=== PATIENT | female | born 1940 | race Caucasian/White ===

== ENCOUNTER → 2019-07-14 22:05 | Outpatient (CLI) | payer MEDICARE, OTHER | END | disposition home or self-care (01) | LOC: D.MAMMO 05-01 13:15 | PROVIDERS: ATTEND Family Medicine | DX: Z12.31 Encounter for screening mammogram for malignant neoplasm of breast (principal) ==

== ENCOUNTER 2019-08-21 13:00 | Outpatient (CLI) | payer MEDICARE, OTHER | END 2019-08-22 14:00 | disposition home or self-care (01) | LOC: D.MAMMO 13:00 | PROVIDERS: ATTEND Family Medicine | DX: R92.8 Other abnormal and inconclusive findings on diagnostic imaging of breast (principal) ==

== ENCOUNTER 2020-07-25 11:04 | Observation (INO) | payer MEDICARE, OTHER ==
[~2020-07-25] VITALS: Ht 157.5 cm; Wt 56.4 kg
--- NOTE | ~2020-07-25 | HEMODYNAMI ---
PATIENT:ALYSSA LOVETT MEDICAL RECORD: [id number] : 44 LOCATION:[address] [id number] ADMISSION DATE: 07/25/20 Generatedon:115:01 Patient name: ALYSSA LOVETT Patient #: [id number] SSN: : 1940 Date of study: 07/26/2020 Page: Of Hemodynamic Procedure Report Patient Data Patient Demographics Procedure consent was obtained First Name: ALYSSA Gender: Female Last Name: BONY : 1940 Middle Initial: R Age: 79 year(s) Patient #: [id number] Race: Unknown Additional ID: [id number] Contact details Address: [address] [place], [place] [address] State: [place] City: [place] Zip code: [address] Past Medical History Allergies: No known allergies Admission Admission Data Admission Date: 07/25/2020 Admission Time: 12:43 Room #: [facility] Lab Results Lab Result Date: 07/26/2020 Lab Result Time: 0:00 Biochemistry Name Units Result Min Max BUN mg/dl 14 --(--*-)-- 7 18 Creatinine mg/dl 0.6 --(*---)-- 0.6 1.3 eGFR ml/min 90 --(*---)-- 90 120 NONAFRICAN CBC Name Units Result Min Max Hematocrit % 38.5 *-(----)-- 42 54 Hemoglobin g/dl 12.8 -*(----)-- 13.5 17.5 Procedure Procedure Types Cath Procedure Diagnostic Procedure [facility] w/Coronaries Sedation Charges Moderate Sedation 10-24 minutes Procedure Description Procedure Date Procedure Date: 07/26/2020 Procedure Start Time: 14:43 Procedure End Time: 14:58 Procedure Staff Name Function Miki Corona MD Performing Physician Ledy Banks RT Monitor Venecia Don RN Nurse Yaneth Nicholas RT Scrub Indication Unstable angina Procedure Data Cath Procedure Fluoroscopy Diagnostic fluoroscopy Total fluoroscopy Time: 5.9 time: 5.9 min min Diagnostic fluoroscopy Total fluoroscopy dose: 409 dose: 409 mGy mGy Contrast Material Contrast Material Type Amount (ml) Isovue 300 70 Entry Location Entry Primary Successful Side Size Upsize Upsize Entry Closure Caro ccessful Closure Location (Fr) 1 (Fr) 2 (Fr) Remarks Device Remarks Radial Right 6 Fr Mechanical artery Short Compression Estimated blood loss: 5 ml Diagnostic catheters Device Type Used For End Catheter Placement DIAGNOSTIC [place] 110cm 5 Procedure Fr catheter ([id number]) DIAGNOSTIC [place] 110cm Procedure 5Fr catheter (938094) DIAGNOSTIC JL 3.5 5Fr Procedure catheter (100830B) DIAGNOSTIC AR MOD 5Fr Procedure Catheter (498227C) Procedure Complications No complications Procedure Medications Medication Administration Route Dosage Oxygen etCO2 Nasal cannula 2 l/min Lidocaine 2% added to field 20 Heparin Flush Bag added to field 2 bags (1000units/500ml NS) 0.9% NaCl I.V. 100 ml/hr Zofran I.V. 4 mg Radial Cocktail added to field 1 syringe (Verapamil 2mg/Nitro 400mcg/Heparin 1500units) Radial Cocktail I.A. 1 syringe (Verapamil 2mg/Nitro 400mcg/Heparin 1500units) Versed I.V. 1 mg Fentanyl I.V. 50 mcg Versed I.V. 1 mg Fentanyl I.V. 50 mcg Versed I.V. 1 mg Hemodynamics Rest HGB: 12.8 (g/dl) Heart Rate: 70 (bpm) Pressure Samples Time Site Value (mmHg) Purpose Heart Use Rate(bpm) 14:45 LV 110/-7,5 Snapshot 69 Gradients Valve Time Site Site Mean SEP/DFP Peak To Heart Use 1 2 (mmHg) (sec/min) Peak Rate (mmHg) (bpm) Aortic 14:46 LV AO 30 Snapshots Pre Cath Intra NCS Post Cath Vital Signs Time Heart Resp SPO2 etCO2 NIBP (mmHg) Rhythm Pain Sedation Rate (ipm) (%) (mmHg) Status Level (bpm) 14:26:33 71 23 98 1.5 131/61(107) NSR 0 (11) 10(A) , No pain 14:30:49 65 16 100 34.5 126/53(99) NSR 0 (11) 10(A) , No pain 14:35:03 65 13 99 44.4 130/56(91) NSR 0 (11) 10(A) , No pain 14:39:19 66 14 99 44.4 129/53(87) NSR 0 (11) 10(A) , No pain 14:43:35 67 13 99 47.4 118/54(82) NSR 0 (11) 9(A) , No pain 14:47:45 72 14 98 27.8 99/51(80) NSR 0 (11) 9(A) , No pain 14:51:51 74 12 97 35.3 106/52(77) NSR 0 (11) 9(A) , No pain 14:56:01 77 13 98 45.8 117/50(72) NSR 0 (11) 10(A) , No pain Medications Time Medication Route Dose Verified Delivered Reason Notes Effectiveness by by 14:17:07 Oxygen etCO2 2 l/min Miki Buffie used for Nasal Cj Don RN procedure cannula 14:17:13 Lidocaine 2% added 20ml Miki Miki for local to vial Cj Corona MD anesthetic field 14:17:19 Heparin Flush added 2 bags Miki Miki used for Bag to Cj Corona MD procedure (1000units/500ml field NS) 14:17:29 0.9% NaCl I.V. 100 Miki Buffie Per ml/hr Cj Don RN physician 14:25:25 Zofran I.V. 4 mg Miki Buffie for nausea Cj Don RN 14:35:00 Radial Cocktail added 1 Miki Miki for (Verapamil to syringe Cj Corona MD vasodilation 2mg/Nitro field 400mcg/Heparin 1500units) 14:43:03 Versed I.V. 1 mg Miki Buffie for sedation Cj Don RN 14:43:08 Fentanyl I.V. 50 mcg Miki Buffie for sedation Cj Don RN 14:44:56 Radial Cocktail I.A. 1 Miki Miki for (Verapamil syringe Cj Corona MD vasodilation 2mg/Nitro 400mcg/Heparin 1500units) 14:46:10 Versed I.V. 1 mg Miki Buffie for sedation Cj Don RN 14:46:14 Fentanyl I.V. 50 mcg Miki Buffie for sedation Cj Don RN 14:50:17 Versed I.V. 1 mg Miki Cuadra for sedation Cj Don RN Procedure Log Time Note 14:09:50 Ledy Banks RT(R) sent for patient. Start room use. 14:09:52 Time tracking: Regular hours (M-F 7:00 - 5:00) 14:09:57 Plan of Care:Hemodynamics will remain stable., Cardiac rhythm will remain stable., Comfort level will be maintained., Respiratory function will remain adequate., Patient/ family verbilizes understanding of procedure., Procedure tolerated without complication., Recovers from procedure without complications.. 14:17:07 Oxygen 2 l/min etCO2 Nasal cannula was administered by Venecia Don RN; used for procedure; Verbal order read back and verified. 14:17:13 Lidocaine 2% 20ml vial added to field was administered by Miki Corona MD; for local anesthetic; Verbal order read back and verified. 14:17:19 Heparin Flush Bag (1000units/500ml NS) 2 bags added to field was administered by Miki Corona MD; used for procedure; Verbal order read back and verified. 14:17:29 0.9% NaCl 100 ml/hr I.V. was administered by Venecia Don RN; Per physician; Verbal order read back and verified. 14:22:23 Patient received from PCU to CCL 2 Alert and oriented. Tansferred to table in Supine position. 14:22:24 Warm blankets applied, and marci hugger turned on for patient comfort. 14:22:26 Signed procedure consent form obtained from patient. 14::27 Correct patient and procedure confirmed by team. 14:22:27 ECG and BP/O2 sat monitors applied to patient. 14:22:29 Full Disclosure recording started 14:25:20 Vital chart was started 14:25:25 Zofran 4 mg I.V. was administered by Venecia Don RN; for nausea; Verbal order read back and verified. 14:25:27 Baseline sample Acquired. 14:25:31 Rhythm: sinus rhythm 14:25:37 H&P Date Dictated: 07/26/2020 ER History on chart.. 14:25:37 Pre-procedure instructions explained to patient. 14:25:38 Pre-op teaching completed and patient verbalized understanding. 14:25:39 Family unavailable. 14:25:40 Patient NPO since Midnight. 14:26:36 Patient allergic to No known allergies 14:26:40 Is patient on blood thinner?No 14:26:48 Patient diabetic? No. 14:26:55 Previous problem with sedation/anesthesia? Yes NAUSEA 14:26:57 Snore? Yes 14:26:59 Sleep apnea? No 14:26:59 Deviated septum? No 14:27:00 Opens mouth fully? Yes 14:27:01 Sticks out tongue? Yes 14:27:03 Airway obstruction? No ? 14:27:05 Dentures? No ? 14:27:08 Pre procedure: right dorsailis pedis pulse 1+ Palpable, but thready & weak; easily obliterated 14:27:09 Modified Jacob's test Ulnar < 7 seconds 14:27:11 Patient pain scale 0/10 ?. 14:27:23 IV patent on arrival in left antecubital with 0.9% NaCl at [facility]. 14:28:46 Lab Result : BUN 14 mg/dl 14::46 Lab Result : Creatinine 0.6 mg/dl 14::46 Lab Result : eGFR NONAFRICAN 90 ml/min 14::46 Lab Result : Hemoglobin 12.8 g/dl 14::46 Lab Result : Hematocrit 38.5 % 14:28:49 Lab results completed and on chart. 14:28:54 Right Radial & Right Groin area was prepped with chlora-prep and draped in sterile fashion 14:28:55 Alarms reviewed by R. N. 14:28:55 Sharps counted by scrub and verified by R.N. 14:33:55 Indication : Unstable angina 14:35:00 Radial Cocktail (Verapamil 2mg/Nitro 400mcg/Heparin 1500units) 1 syringe added to field was administered by Miki Corona MD; for vasodilation; Verbal order read back and verified. 14:37:52 Zero performed for pressure channel P1 14:42:07 --------ALL STOP TIME OUT------ 14:42:07 Final Timeout: patient, procedure, and site verified with staff and physician. All members of the team are in agreement. 14:42:09 Right Radial & Right Groin site verified by team. 14:42:12 Fire Safety Assessment: A--An alcohol-based skin anteseptic being used preoperatively., C--Open oxygen or nitrous oxide is being used., D--An ESU, laser, or fiber-optic light is being used. 14:42:14 Physical assessment completed. ASA score P 2 - A patient with mild systemic disease as per Miki Corona MD. 14:42:16 1) 90+ Normal kidney functon but urine findings or structural abnormalities or genetic trait point to kidney disease. 14:42:18 Maximum allowable contrast dose (3.7 X eGFR X 0.75)250. ml. 14:42:20 Sedation plan: IV Moderate Sedation Medication:Versed, Fentanyl 14:42:56 Use device set Radial Dx or PCI 14:42:57 ACIST Syringe (54529) opened to sterile field. 14:42:58 Bag Decanter () opened to sterile field. 14:42:58 ACIST Hand Control (51122) opened to sterile field. 14:42:59 ACIST Manifold (69306) opened to sterile field. 14:42:59 Tegaderm 4 x 4 (1626W) opened to sterile field. 14:43:03 Versed 1 mg I.V. was administered by Venecia Don RN; for sedation; Verbal order read back and verified. 14:43:08 Fentanyl 50 mcg I.V. was administered by Venecia Don RN; for sedation; Verbal order read back and verified. 14:43:13 Medline Cath Pack ([id number]) opened to sterile field. 14:43:14 MBrace Wrist Support ([id number]) opened to sterile field. 14:43:15 NEEDLE Cook 21G 4cm Radial (S37503) opened to sterile field. 14:43:16 EMERALD Guide Wire (448-118) opened to sterile field. 14:43:17 SHEATH 6FR RAIN (9336668) opened to sterile field. 14:43:20 Procedure started. 14:43:28 Local anesthetic to right radial artery with Lidocaine 2% by Miki Corona MD.INITIAL ACCESS ONLY 14:44:40 A 6 Fr Short sheath was inserted into the Right Radial artery 14:44:56 Radial Cocktail (Verapamil 2mg/Nitro 400mcg/Heparin 1500units) 1 syringe I.A. was administered by Miki Corona MD; for vasodilation; Verbal order read back and verified. 14:45:08 A DIAGNOSTIC [place] 110cm 5 Fr catheter (440258) was advanced over the wire and used for Procedure. 14:45:20 LV gram done using VIRK 14:45:22 Injector settings: Ml/sec: 5, Volume: 15, 14:45:23 LV hemodynamics recorded. 14:45:40 EF : 60 % 14:46:10 Versed 1 mg I.V. was administered by Venecia Don RN; for sedation; Verbal order read back and verified. 14:46:14 Fentanyl 50 mcg I.V. was administered by Venecia Don RN; for sedation; Verbal order read back and verified. 14:48:21 UNABLE TO ENGAGE LCA AND RCA 14:48:35 Catheter exchanged over wire. 14:48:54 A DIAGNOSTIC [place] 110cm 5Fr catheter (020083) was advanced over the wire and used for Procedure. 14:50:17 Versed 1 mg I.V. was administered by Venecia Don RN; for sedation; Verbal order read back and verified. 14:50:46 Catheter exchanged over wire. 14:50:54 UNABLE TO ENGAGE 14:52:26 A DIAGNOSTIC JL 3.5 5Fr catheter ([id number]) was advanced over the wire and used for Procedure. 14:53:27 LCA angiography performed. 14:53:41 Catheter exchanged over wire. 14:53:55 A DIAGNOSTIC AR MOD 5Fr Catheter (117672N) was advanced over the wire and used for Procedure. 14:54:58 RCA angiography performed. 14:55:38 Catheter removed. 14:55:42 Procedure ended.(Physican Out) 14:55:50 ZEPHYR REGULAR TR BAND (272061) opened to sterile field. 14:56:00 Sheath removed intact; hemostasis achieved with Mechanical Compression to the Right Radial artery. 14:56:07 Fluoroscopy time 05.90 minutes. 14:56:11 Fluoroscopy dose: 409 mGy 14:56:11 Flurop Dose total: 409 14:56:16 Dose Area Product 17790 mGy/cm. 14:56:49 Contrast amount:Isovue 300 70ml. 14:56:51 Maximum allowable dose exceeded? No. 14:56:52 Sharps counted by scrub and verified by R.N. 14:56:55 [place] band inflated with 10cc of air. 14:56:56 Insertion/operative site no bleeding no hematoma. 14:56:59 Post-procedure physical assessment completed. ASA score P 2 - A patient with mild systemic disease as per Miki Corona MD. 14:57:01 Post procedure rhythm: sinus rhythm 14:57:04 Estimated blood loss: 5 ml 14:57:05 Post procedure instruction explained to patient.Patient verbalizes understanding. 14:57:05 Patient needs reinforcement of post procedure teaching. 14:57:22 Procedure type changed to Cath procedure, Diagnostic procedure, LHC, C w/Coronaries, Sedation Charges, Moderate Sedation 10-24 minutes 14:57:36 Procedure and supply charges have been captured, reviewed, submitted and are correct. 14:57:38 Procedure Complication : No complications 14:57:40 Vital chart was stopped 14:57:42 [facility] Findings: mild to moderate CAD (<70%) 14:57:44 Operative report dictated upon procedure completion. 14:57:45 See physician's report for complete and final results. 14:58:20 Report given to [facility]. 14:58:22 Patient transfered to [facility] with Bed. 14:58:24 Procedure ended. 14:58:24 Full Disclosure recording stopped 14:58:32 End room use (Document Last) 15:00:23 End room use (Document Last) 15:00:51 End room use (Document Last) Device Usage Item Name Manufacture Quantity Catalog Hospital Part Current Minima l Lot# / Number Charge Number Stock Stock Serial# Code ACIST Acist 1 38463 213240 479164 [id number] 20 Syringe Medical (37153) Systems Inc Bag Microtek 1 702333 79953 357858 5 Decanter Medical Inc. () ACIST Hand Acist 1 65181 771412 905643 365141 5 Control Medical (15720) Systems Inc ACIST Acist 1 22130 992321 400310 492521 5 Manifold Medical (95053) Systems Inc Tegaderm 4 3M 1 1626W 247979 994496 204530 5 x 4 (1626W) Medline Medline 1 [id number] 192022 01951 867010 5 Cath Pack ([id number]) MBrace Advanced 1 140-0250-00 440787 48796 800573 5 Wrist Vascular Support Dynamics (058056664) NEEDLE [facility] Cellect 1 L07089 202153 562520 253060 5 21G 4cm Radial (G74190) EMERALD Cardinal 1 502-488 927699 386427 213584 5 Guide Wire Health (502455) SHEATH 6FR Cardinal 1 5290789 104822 7756065 086076 5 [facility] Health (9718295) DIAGNOSTIC Terumo 1 40-5013 186982 972617 340259 5 [place] 110cm 5 Fr catheter (191813) DIAGNOSTIC Terumo 1 40-5023 235479 811258 909675 5 [place] 110cm 5Fr catheter (296567) DIAGNOSTIC Cardinal 1 509659E 071327 960136 304869 5 JL 3.5 5Fr Health catheter (858042C) DIAGNOSTIC Cardinal 1 190095I 715591 166158 718190 15 AR MOD 5Fr Health Catheter (242292F) ZEPHYR Cardinal 1 343613 305756 9202052 471857 5 REGULAR TR Health BAND (510328) Signature Audit [place] Stage Time Signature Unsigned Intra-Procedure 07/26/2020 Ledy Banks 3:00:23 PM RT(R) Intra-Procedure 07/26/2020 Venecia Don RN 3:00:51 PM Intra-Procedure 07/26/2020 Miki Corona MD 3:01:12 PM Signatures Performing Physician : Signature : Miki Corona MD Date : Time : Monitor : Ledy Banks Signature : RT Date : Time : Nurse : Venecia Don RN Signature : Date : Time : [facility] [address] [place] [address]
[2020-07-25] MEDS ORDERED: LIPITOR20 MG PO (11:14)
[2020-07-25] MEDS ORDERED: CLODERM TOPICAL (11:17)
[2020-07-25] MEDS ORDERED: VITAMIN D31250 MCG PO (11:17)
[2020-07-25] MEDS ORDERED: CELEXA20 MG PO (11:17)
[2020-07-25] MEDS ORDERED: DEBROX OTIC15 ML EACH EAR (11:17)
[2020-07-25] MEDS ORDERED: PREVACID30 MG PO (11:18)
[2020-07-25] MEDS ORDERED: OCUFLOX 0.3 % OP5 ML LEFT EYE (11:19)
[2020-07-25] MEDS ORDERED: PROCTOFOAM15 GM RC (11:19)
[2020-07-25] MEDS ORDERED: NITRO-DUR1 EAC3 TOPICAL (11:19)
[2020-07-25 11:26] VITALS: BP 146/65
[2020-07-25 11:28] LABS: BASOPHILS 0.6 % (0-2); EOSINOPHILS 1.9 % (0-7); HEMATOCRIT 40.1 % (36.0-48.0); HEMOGLOBIN 13.2 g/dL (12-16); LYMPHOCYTES 28.7 % (15-50); MCH 31.2 pg (26.0-34.0); MCV 94.7 fL (80.0-100.0); MEAN PLATELET VOLUME 8.8 fL (7.4-10.4); MONOCYTES 7.5 % (2-11); NEUTROPHILS 61.3 % (40-80); PLATELET COUNT 204 10x3/uL (130-400); RBC 4.24 10x6/uL (4.00-5.40); WBC 7.8 10x3/uL (4.8-10.8)
[2020-07-25 11:45] LABS: APTT 28.3 SECONDS (22.8-39.4); CALC OSMOLALITY 282 mosm/kg (275-300); CALCIUM 8.9 mg/dL (8.5-10.1); CARBON DIOXIDE 29.8 mmol/L (21.0-32.0); CHLORIDE - SERUM 106 mmol/L (98-107); CREATININE - SERUM 0.7 mg/dL (0.6-1.3); GLUCOSE 92 mg/dL (74-106); INR 1.11 (0.85-1.17); POTASSIUM - SERUM 3.9 mmol/L (3.5-5.1); PROTIME 13.3 SECONDS (11.6-15.0); SODIUM 142 mmol/L (136-145); UREA NITROGEN 13 mg/dL (7-18); eGFR NON AFRICAN AMERICAN 86 mL/min (90-120)
[2020-07-25 12:00] LABS: ALBUMIN 3.4 g/dL (3.4-5.0); ALKALINE PHOSPHATASE 63 U/L (30-120); ALT (SGPT) 17 U/L (10-68); BILIRUBIN - TOTAL 0.46 mg/dL (0.2-1.3); CKMB 0.7 U/L (0.0-3.6); CREATINE KINASE 83 UL (21-215); MAGNESIUM - SERUM 2.2 mg/dL (1.8-2.4); PROTEIN - SERUM 6.6 g/dL (6.4-8.2)
[2020-07-25 12:01] LABS: TROPONIN-I < 0.017 ng/mL (0.000-0.060)
[2020-07-25 12:58] LABS: CKMB 0.6 U/L (0.0-3.6); CREATINE KINASE 90 UL (21-215)
[2020-07-25 13:00] LABS: CKMB 0.8 U/L (0.0-3.6); CREATINE KINASE 90 UL (21-215); TROPONIN-I < 0.017 ng/mL (0.000-0.060)
[2020-07-25 14:22] LABS: TROPONIN-I < 0.017 ng/mL (0.000-0.060)
--- NOTE | 2020-07-25 16:07 | NUR ---
REPORT CALLED TO GILBERT GARRIDO, TRANSPORT NOTIFIED PT IS READY TO BE MOVED TO THE FLOOR
[2020-07-25 16:29] VITALS: BP 144/65; Ht 157.5 cm; Wt 56.4 kg
--- NOTE | 2020-07-25 19:30 | NUR ---
RECEIVED REPORT, WILL ASSUME CARE OF PT, HELPED GET IN GOWN, DENIES ANY OTHER NEEDS AT THIS TIME, BED IS LOW, SRX2, CALL LIGHT IN REACH, WILL CONTINUE PLAN OF CARE
[2020-07-25 21:00] VITALS: BP 137/66
[2020-07-26] VITALS (7 sets, daily range): BP systolic 95–132; BP diastolic 43–70
[2020-07-26 06:42] LABS: BASOPHILS 0.7 % (0-2); HEMATOCRIT 38.5 % (36.0-48.0); HEMOGLOBIN 12.8 g/dL (12-16); LYMPHOCYTES 38.6 % (15-50); MCH 31.4 pg (26.0-34.0); MCHC 33.3 g/dL (31.0-37.0); MCV 94.3 fL (80.0-100.0); MEAN PLATELET VOLUME 9.1 fL (7.4-10.4); MONOCYTES 8.8 % (2-11); NEUTROPHILS 48.9 % (40-80); PLATELET COUNT 196 10x3/uL (130-400); RBC 4.08 10x6/uL (4.00-5.40); RDW 12.9 % (11.5-14.5); WBC 7.3 10x3/uL (4.8-10.8)
[2020-07-26 07:08] LABS: ALKALINE PHOSPHATASE 55 U/L (30-120); ALT (SGPT) 17 U/L (10-68); BILIRUBIN - TOTAL 0.53 mg/dL (0.2-1.3); CALC OSMOLALITY 289 mosm/kg (275-300); CALCIUM 8.7 mg/dL (8.5-10.1); CARBON DIOXIDE 31.3 mmol/L (21.0-32.0); CHLORIDE - SERUM 109 mmol/L (98-107); CKMB 0.6 U/L (0.0-3.6); CREATINE KINASE 71 UL (21-215); CREATININE - SERUM 0.6 mg/dL (0.6-1.3); GLUCOSE 90 mg/dL (74-106); MAGNESIUM - SERUM 2.2 mg/dL (1.8-2.4); SODIUM 145 mmol/L (136-145); UREA NITROGEN 14 mg/dL (7-18); eGFR NON AFRICAN AMERICAN > 90 mL/min (90-120)
[2020-07-26 07:09] LABS: TROPONIN-I < 0.017 ng/mL (0.000-0.060)
[2020-07-26 08:27] LABS: CHOL - HDL RATIO 2.4 ratio (2.3-4.1); LDL-HDL RATIO 1.3 ratio (1.5-3.5)
--- NOTE | 2020-07-26 13:22 | NUR ---
PRE-OP MEDS GIVEN ALONG WITH PLACING PATIENT ON OXYGEN. CALL LIGHT IN USE.
--- NOTE | 2020-07-26 14:15 | NUR ---
TO PLANTING MACHINE CREWMAN VIA BED.
--- NOTE | 2020-07-26 15:16 | NUR ---
RETURNS FROM PATIENT ADMITTING REPRESENTATIVE WITH TR BAND SEEN TO RIGHT WRIST. JUDITH MAT ALARM ON AND IN PLACE. ON 2L PER NC. PLACED BACK ON HEART MONITOR. NO BLEEDING SEEN TO RIGHT WRIST. WILL MONITOR.
--- NOTE | 2020-07-26 16:13 | NUR ---
2 CC AIR REMOVED FROM RIGHT WRIST TR BAND. NO BLEEDING SEEN. PATIENT IS STILL VERY SLEEPY.
--- NOTE | 2020-07-26 17:44 | NUR ---
SITTING UP IN THE BED EATING SUPPER, NO BLEEDING SEEN AT RIGHT WRIST SITE WITH TR BAND SLOWLY BEING REMOVED. NO NEEDS VOICED.
--- NOTE | 2020-07-26 18:50 | NUR ---
TR BAND COMPLETELY REMOVED, 2 X 2 AND IV OPSITE PLACED OVER SITE ALONG WITH SPLINT. WILL MONITOR FOR BLEEDING.
[2020-07-27 04:00] VITALS: BP 124/58
[2020-07-27 05:08] LABS: BASOPHILS 0.6 % (0-2); EOSINOPHILS 2.6 % (0-7); HEMATOCRIT 37.1 % (36.0-48.0); HEMOGLOBIN 12.3 g/dL (12-16); LYMPHOCYTES 33.7 % (15-50); MCH 31.3 pg (26.0-34.0); MCHC 33.1 g/dL (31.0-37.0); MCV 94.5 fL (80.0-100.0); MEAN PLATELET VOLUME 8.9 fL (7.4-10.4); MONOCYTES 7.8 % (2-11); NEUTROPHILS 55.3 % (40-80); PLATELET COUNT 191 10x3/uL (130-400); RBC 3.93 10x6/uL (4.00-5.40); WBC 7.6 10x3/uL (4.8-10.8)
[2020-07-27 05:50] LABS: ALBUMIN 2.8 g/dL (3.4-5.0); ANION GAP 7.6 mmol/L (8-16); BILIRUBIN - TOTAL 0.27 mg/dL (0.2-1.3); CALCIUM 8.1 mg/dL (8.5-10.1); CARBON DIOXIDE 28.5 mmol/L (21.0-32.0); MAGNESIUM - SERUM 2.1 mg/dL (1.8-2.4); POTASSIUM - SERUM 4.1 mmol/L (3.5-5.1); PROTEIN - SERUM 5.7 g/dL (6.4-8.2)
--- NOTE | 2020-07-27 05:52 | NUR ---
I have reviewed this patient and I concur with the Shift Assessment completed by the Licensed Practical Nurse today this shift.
[2020-07-27 05:56] LABS: CREATININE - SERUM 0.9 mg/dL (0.6-1.3)
--- NOTE | 2020-07-27 06:50 | NUR ---
PATIENT AWAKE AND ALERT, UP AT GUANACO. IV TO LEFT AC SALINE LOCKED. NO O2 IN USE O2 SAT AT 99%. RESP EVEN AND UNLABORED.
[2020-07-27 07:55] VITALS: BP 131/59
--- NOTE | 2020-07-27 09:31 | NUR ---
PATIENT AWAKE ALERT AND ORIENTED. NO CURRENT PAIN OR DISTRESS VERBALIZED. RESP EVEN AND UNLABORED. LUNG SOUNDS CLEAR. HEART SOUNDS REGULAR RATE AND RYTHYM. IV TO L AC PATIENT AND SALINE LOCKED. BOWEL SOUNDS ACTIVE X 4 QUADS. DRESSING TO RIGHT WRIST CLEAN DRY AND INTACT.
[2020-07-27] MEDS ORDERED: NITROQUICK0.4 MG SL (10:21)
[2020-07-27] MEDS ORDERED: PROTONIX40 MG PO (10:22)
[2020-07-27] MEDS ORDERED: CARAFATE1 G PO (10:22)
== END 2020-07-27 14:53 | disposition home or self-care (01) ==
LOC: D.ER 11:04 → D.M2 12:43 → OBSVTIME 12:43 → D.M2 12:43
PROVIDERS: Family Medicine; Internal Medicine Cardiovascular Disease; ADMIT Emergency Medicine; ATTEND Emergency Medicine
DX: I20.0 Unstable angina (principal); R07.9 Chest pain, unspecified; R42 Dizziness and giddiness; R06.02 Shortness of breath; R11.0 Nausea; E78.5 Hyperlipidemia, unspecified; K21.9 Gastro-esophageal reflux disease without esophagitis; M79.7 Fibromyalgia; F32.9 Major depressive disorder, single episode, unspecified